=== PATIENT | female | born 1965 | race Caucasian/White ===

== ENCOUNTER 2020-02-01 11:09 | Observation (INO) ==
[2020-02-01] MEDS ORDERED: KETOROLAC TROMETHAMINE 15 MG/ML VIAL IV STA (11:27)
[2020-02-01] MEDS ORDERED: SODIUM CHLORIDE 0.9% 1000ML 2,000 ML IV ONE (11:27)
[2020-02-01] MEDS ORDERED: DiphenhydrAMINE HCL 50 MG/ML VIAL IV STA (11:27)
[2020-02-01] MEDS ORDERED: ONDANSETRON INJ 2 MG/ML 2 ML VIAL IV STA (11:27)
--- NOTE | 2020-02-01 11:31 | Emergency Department Note ---
Impression & Plan Epigastric abdominal pain, Vomiting, Acute dehydration, Gastric mass ED Provider Note NAME: FAMILIA KAPLAN AGE: 54 SEX: F : 1965 ARRIVES VIA: Walk-In INFORMANT: [Patient] ED PROVIDER(S): [Da Benites MD] CHIEF COMPLAINT: Vomiting HISTORY OF PRESENT ILLNESS: The patient is a 54-year-old female presents with 3 days of vomiting. She has a crampy abdominal pain that she would rate as a 6/10. The pain is diffuse. The patient states that she started taking clindamycin for a nasal infection. The third day after starting this medication, she started vomiting. She has not taken any of that medication since. There is no diarrhea, no urinary complaints. No fever, chills, cough or congestion. No sick contacts. The patient states that no one else in the house or any of her friends are sick with similar symptoms. No bad food consumed. Of note, the patient was here in October for very similar symptoms and did well with IV fluids REVIEW OF SYSTEMS: See HPI for pertinent positives and negatives. A total of ten systems were reviewed and were otherwise negative. PMHx/PSHx: See Below SOCIAL HISTORY: See Below. PHYSICAL EXAM: GENERAL: Patient is in no acute distress. HEENT: No acute trauma, normocephalic atraumatic, mucous membranes moist, no nasal congestion, no scleral icterus. NECK: No stridor, no adenopathy, no meningismus, trachea is midline. LUNGS: Clear to auscultation bilaterally, no wheeze, no rhonchi, breath sounds equal. HEART: Without murmurs gallops or rubs, regular rate and rhythm. ABDOMEN: Soft, moderately tender in the epigastrium and right upper quadrant, bowel sounds positive, no hernias, no peritonitis. EXTREMITIES: No cyanosis or edema, full range of motion of all the joints without pain or difficulty, no signs for acute trauma. NEUROLOGIC: Oriented x 3, no acute motor or sensory deficits, no focal weakness. SKIN: No rash, no jaundice, no diaphoresis. DIFFERENTIAL DIAGNOSIS: Appendicitis, ovarian cyst, ovarian torsion, infections, diverticulitis, UTI, obstruction, foodborne or viral illness, mesenteric ischemia, aortic pathology, inflammatory bowel disease, renal colic, PUD, pancreatitis, biliary pathology, hernia, volvulus, constipation, as well as other pathologies. EMERGENCY DEPARTMENT COURSE/PROCEDURES: ECG: Indication was epigastric pain. The ECG shows a normal sinus rhythm with some sinus arrhythmia. The rate is 83. There is an incomplete right bundle branch block. No ST elevation, no PVCs. The QTc is 465. Continuous Cardiac Monitoring: An order was placed for continuous cardiac monitoring. The monitor shows a rate 81 with normal sinus rhythm. MEDICAL DECISION MAKING: There is no leukocytosis. No anemia, in fact, the patient's hemoglobin was somewhat elevated, likely consistent with dehydration. There was a normal platelet count. No significant electrolyte abnormality or kidney failure. There was an elevation to the bilirubin, this has been documented before as per her previous testing. This elevation may be from dehydration/vomiting. The remaining liver enzymes were unremarkable. No evidence for pancreatitis. Urinalysis showed evidence for some dehydration and hematuria, no infection noted. Abdominal series did not show free air, bowel obstruction or pneumonia. Gallbladder ultrasound was unremarkable. Abdominal and pelvis CT shows a potential gastric mass versus large gastric ulceration, a GI consult was suggested. On my exam, the patient was not febrile or toxic. She was tender in the epigastrium with palpation. The patient received IV Benadryl, IV Toradol, IV Zofran and 2 L of IV saline. She was persistently nauseated and was given IV Phenergan. She received IV Pepcid and IV Protonix for the findings noted on CT. She was given IV morphine for additional pain control. She received an additional 500 cc saline bolus. The patient appears to have symptoms today from the findings on CT. She either has a gastric mass or some sort of gastric ulceration. This explains the abdominal discomfort on exam, it is certainly possible that her clindamycin flared up the underlying process and led to her presentation today. She has on going symptoms despite numerous medications administered. I do think a hospital stay is warranted. She needs a GI consult and likely an endoscopy. I spoke to the patient about her findings, I spoke with case management. I did speak with GI-the patient will likely be scoped tomorrow. The on-call hospitalist was consulted. Past Med/Surg History Medical History Arthritis Asthma Coronary artery disease Hypothyroidism PTSD (post-traumatic stress disorder) Surgical History History of delivery History of foot surgery History of sinus surgery Family History Father Cancer Allergies Grandfather (Maternal) Cancer Grandfather (Paternal) Cancer Other Coronary heart disease Heart disease Myocardial infarction No family history of adverse response to anesthesia No family history of bleeding disorder Social History Smoking Status: Never smoker Hx Alcohol Use: Yes Hx Substance Use: No (Pt does use medical marijuana) Preferred Language: Amharic marital status: Legally Current Living Situation: Alone current occupational status: employed Feels Safe at Home: Yes Allergies Allergies Allergy/AdvReac Type Severity Reaction Status Date / Time codeine Allergy Unknown Rash Verified 02/01/20 12:55 iodine Allergy Unknown Unknown Unverified 02/01/20 12:55 Penicillins Allergy Unknown Rash Unverified 02/01/20 12:55 Sulfa (Sulfonamide Allergy Unknown Rash Unverified 02/01/20 12:55 Antibiotics) sulfamethoxazole Allergy Unknown Rash Unverified 02/01/20 12:55 [From Bactrim] trimethoprim [From Bactrim] Allergy Unknown Rash Unverified 02/01/20 12:55 animal dander Allergy Verified 02/01/20 12:55 Fish Containing Products AdvReac Severe Anaphylaxis Unverified 02/01/20 12:55 moxifloxacin [From Avelox] AdvReac Severe Tachycardia Unverified 02/01/20 12:55 Home Meds Home Medications Medication Instructions Recorded Confirmed fluticasone propionate [Flovent 2 puff INHALATION DAILY 10/09/19 02/01/20 HFA] meloxicam 15 mg PO QPM 10/09/19 02/01/20 montelukast [Singulair] 10 mg PO QPM 10/09/19 02/01/20 levothyroxine [Synthroid] 75 mcg PO QAM 02/01/20 02/01/20 mometasone [Asmanex Twisthaler] 1 inh INHALATION DAILY 02/01/20 02/01/20 Previous Rx's Medication Instructions Recorded mupirocin 2 % topical ointment 1 applic TOP BID #15 gm 11/18/19 Results & Data (ED) Vital Signs Vital Signs - 24 hr 02/01/20 11:12 02/01/20 11:42 02/01/20 11:45 Temperature 37.3 C Temperature Source Oral Pulse Rate 120 H 78 Pulse Rate [Finger] 86 Pulse Rate from SpO2 Sensor Respiratory Rate 16 14 20 Respiratory Effort / Characteristics Non-Labored Respiratory Depth Normal Blood Pressure 141/84 H 176/84 H Blood Pressure [Right Arm] 176/84 H Blood Pressure Mean 103 105 Blood Pressure Mean [Right Arm] 114 Pulse Oximetry 96 97 Oxygen Delivery Method Room Air Room Air Sepsis Recent Fever Within 48 Hours No Sepsis New/Unexplained Change in Mental Status No Sepsis Action Taken by Nursing No Action Required 02/01/20 11:49 02/01/20 12:51 02/01/20 12:52 Temperature Temperature Source Pulse Rate 80 Pulse Rate [Finger] 83 Pulse Rate from SpO2 Sensor 81 88 Respiratory Rate 14 20 Respiratory Effort / Characteristics Respiratory Depth Blood Pressure 131/72 Blood Pressure [Right Arm] 131/72 Blood Pressure Mean 111 Blood Pressure Mean [Right Arm] 91 Pulse Oximetry 98 97 Oxygen Delivery Method Room Air Sepsis Recent Fever Within 48 Hours Sepsis New/Unexplained Change in Mental Status Sepsis Action Taken by Nursing 02/01/20 13:00 02/01/20 13:30 02/01/20 14:48 Temperature Temperature Source Pulse Rate Pulse Rate [Finger] Pulse Rate from SpO2 Sensor 82 81 Respiratory Rate Respiratory Effort / Characteristics Respiratory Depth Blood Pressure 156/81 H Blood Pressure [Right Arm] Blood Pressure Mean 98 Blood Pressure Mean [Right Arm] Pulse Oximetry 97 96 Oxygen Delivery Method Sepsis Recent Fever Within 48 Hours Sepsis New/Unexplained Change in Mental Status Sepsis Action Taken by Nursing 02/01/20 14:51 02/01/20 15:07 02/01/20 15:30 Temperature Temperature Source Pulse Rate Pulse Rate [Finger] 82 Pulse Rate from SpO2 Sensor Respiratory Rate 20 Respiratory Effort / Characteristics Respiratory Depth Blood Pressure 145/76 H 134/60 Blood Pressure [Right Arm] 156/81 H Blood Pressure Mean 95 85 Blood Pressure Mean [Right Arm] 106 Pulse Oximetry 98 Oxygen Delivery Method Room Air Sepsis Recent Fever Within 48 Hours Sepsis New/Unexplained Change in Mental Status Sepsis Action Taken by Nursing 02/01/20 15:41 02/01/20 15:42 02/01/20 16:00 Temperature Temperature Source Pulse Rate Pulse Rate [Finger] Pulse Rate from SpO2 Sensor 75 81 74 Respiratory Rate Respiratory Effort / Characteristics Respiratory Depth Blood Pressure 139/81 148/81 H Blood Pressure [Right Arm] Blood Pressure Mean 105 117 Blood Pressure Mean [Right Arm] Pulse Oximetry 96 98 96 Oxygen Delivery Method Sepsis Recent Fever Within 48 Hours Sepsis New/Unexplained Change in Mental Status Sepsis Action Taken by Nursing 02/01/20 16:01 Temperature Temperature Source Pulse Rate Pulse Rate [Finger] Pulse Rate from SpO2 Sensor 72 Respiratory Rate Respiratory Effort / Characteristics Respiratory Depth Blood Pressure Blood Pressure [Right Arm] Blood Pressure Mean Blood Pressure Mean [Right Arm] Pulse Oximetry 99 Oxygen Delivery Method Sepsis Recent Fever Within 48 Hours Sepsis New/Unexplained Change in Mental Status Sepsis Action Taken by [facility] Medications Current Medication List: was personally reviewed by me Laboratory Data Attestation: I reviewed the patient's lab results. Result diagrams: 02/01/20 11:28 02/01/20 11:28 Lab Results 02/01/20 02/01/20 02/01/20 Range/Units 11:28 11:28 13:40 WBC 10.71 (4.8-10.8) K/uL RBC 5.86 H (4.2-5.4) M/uL Hgb 17.0 H (12.0-16.0) g/dL Hct 50.4 H (37-47) % MCV 86.0 (80-100) fL MCH 29.0 (25-34) pg MCHC 33.7 (32-36) g/dL RDW Std Deviation 43.2 (36.4-46.3) fL RDW Coeff of Jeremy 13.8 (11.5-14.5) % Plt Count 306 (130-400) K/uL MPV 10.4 (7.4-10.4) fL Immature Gran % (Auto) 0.2 % Neut % (Auto) 75.9 % Lymph % (Auto) 16.2 % [place] % (Auto) 7.6 % Eos % (Auto) 0.0 % Baso % (Auto) 0.1 % Neut # (Auto) 8.13 H (1.4-6.5) K/uL Lymph # (Auto) 1.74 (1.2-3.4) K/uL [place] # (Auto) 0.81 H (0.11-0.59) K/uL Eos # (Auto) 0.00 (0-0.5) K/uL Baso # (Auto) 0.01 (0-0.2) K/uL Immature Gran # (Auto) 0.02 (0.00-0.02) K/uL Sodium 136 (136-145) mmol/L Potassium 3.6 (3.5-5.1) mmol/L Chloride 101 (98-107) mmol/L Carbon Dioxide 25 (21-32) mmol/L Anion Gap 11.0 (3-11) BUN 27 H (7-18) mg/dl Creatinine 0.84 (0.6-1.2) mg/dl Est Cr Clr Drug Dosing 66.4 ml/min Est GFR ( Amer) 90.7 Est GFR (Non-Af Amer) 78.2 BUN/Creatinine Ratio 31.9 H (10-20) Glucose 82 (70-99) mg/dl Calcium 10.3 H (8.5-10.1) mg/dl Total Bilirubin 1.9 H (0.2-1) mg/dl AST 13 L (15-37) U/L ALT 22 (12-78) U/L Alkaline Phosphatase 71 (45-117) U/L Total Protein 8.6 H (6.4-8.2) gm/dl Albumin 4.4 (3.4-5.0) gm/dl Globulin 4.2 H (2.5-4.0) gm/dl Albumin/Globulin Ratio 1.0 (0.9-2) Lipase 142 (73-393) U/L Urine Color Yellow Urine Appearance Clear (Clear) Urine pH 5.5 (4.5-7.5) Ur Specific [place] >= 1.030 (1.000-1.030) Urine Protein Negative (Negative) Urine Glucose (UA) Negative (Negative) Urine Ketones 2+ H (Negative) Urine Blood 1+ H (Negative) Urine Nitrite Negative (Negative) Urine Bilirubin Negative (Negative) Urine Urobilinogen Negative (Negative) Ur Leukocyte Esterase Negative (Negative) Urine RBC >30 H (0-4) /hpf Urine WBC 5-10 H (0-5) /hpf Ur Epithelial Cells >30 H (0-5) /lpf Urine Bacteria Negative (Negative) Administered Medications Discontinued Medications Diphenhydramine HCl (Diphenhydramine Hcl 50 Mg/Ml Vial) 12.5 mg IV NOW STA Stop: 02/01/20 11:28 Last Admin: 02/01/20 11:38 Dose: 12.5 mg Documented by: [id number] Famotidine (Famotidine 20mg/5ml Iv Push) 20 mg IV ONE STA Stop: 02/01/20 14:52 Last Admin: 02/01/20 15:02 Dose: 20 mg Documented by: [id number] Sodium Chloride (Nss 1000ml) 2,000 mls @ 999 mls/hr IV .Q2H1M ONE Stop: 02/01/20 13:27 Last Infusion: 02/01/20 13:37 Dose: 0 mls/hr Documented by: [id number] Admin: 02/01/20 11:36 Dose: 999 mls/hr Documented by: [id number] Promethazine HCl (Phenergan) 6.25 mg in 50.25 mls @ 201 mls/hr IV NOW STA Stop: 02/01/20 15:05 Last Infusion: 02/01/20 15:47 Dose: 0 mls/hr Documented by: [id number] Admin: 02/01/20 15:02 Dose: 201 mls/hr Documented by: [id number] Sodium Chloride (Nss 1000ml) 500 mls @ 999 mls/hr IV .Q31M ONE Stop: 02/01/20 15:21 Last Infusion: 02/01/20 15:47 Dose: 0 mls/hr Documented by: [id number] Admin: 02/01/20 15:02 Dose: 999 mls/hr Documented by: [id number] Ketorolac Tromethamine (Ketorolac Tromethamine 15 Mg/Ml Vial) 15 mg IV NOW STA Stop: 02/01/20 11:28 Last Admin: 02/01/20 11:38 Dose: 15 mg Documented by: [id number] Morphine Sulfate (Morphine Sulfate 2 Mg/Ml Carp) 2 mg IV NOW STA Stop: 02/01/20 14:52 Last Admin: 02/01/20 15:02 Dose: 2 mg Documented by: [id number] Ondansetron HCl (Ondansetron Inj 2 Mg/Ml 2 Ml Vial) 4 mg IV NOW STA Stop: 02/01/20 11:28 Last Admin: 02/01/20 11:38 Dose: 4 mg Documented by: [id number] Imaging Data Radiologist's Impression: US gallbladder CLINICAL HISTORY: Epigastric pain, vomiting COMPARISON STUDY: 10/21/2019 FINDINGS: Pancreas appears sonographically normal. The liver appears sonographically normal. The gallbladder appears sonographically normal. There is no ductal dilatation. The common bile duct measures 4 mm. There is no right- sided hydronephrosis. There is a 5 mm echogenic focus within the lower pole of the right kidney. This is consistent with although not specific for an angiomyolipoma. IMPRESSION: 1. Ultrasonographically normal gallbladder liver and pancreas. No ductal dilatation 2. No right-sided hydronephrosis 3. Nonspecific 5 mm echogenic focus within the lower pole the right kidney. XR abdomen 2V w PA chest CLINICAL HISTORY: Nausea and vomiting COMPARISON STUDY: 10/21/2019 FINDINGS: Erect chest reveals no free air. There is no focal pulmonary consolidation. Bilateral nipple shadows are visualized. Apical opacities are likely either extremities the patient will represent pleural plaques. Erect and supine views the abdomen reveal no abnormally dilated loops of large or small bowel. There are no transition zone to indicate bowel obstruction. There are no calcifications suspicious for renal calculi. This is stable tiny right pelvic basin calcification likely representing a phlebolith IMPRESSION: No evidence of bowel obstruction. No evidence of free air. CT SCAN OF THE ABDOMEN AND PELVIS WITHOUT CONTRAST CLINICAL HISTORY: vomiting, hematuria COMPARISON STUDY: X-ray study dated 02/01/2020 TECHNIQUE: CT scan of the abdomen and pelvis was performed from the lung bases to the proximal femurs. Images are reviewed in the axial, sagittal, and coronal planes. IV contrast was not administered for this examination. A dose lowering technique was utilized adhering to the principles of ALARA. CT DOSE: 239.37 mGy.cm FINDINGS: Lower chest: The heart is normal in size and configuration, without pericardial effusion. The lung bases and pleural spaces are clear. Liver: The unenhanced liver is normal in size, contour, and attenuation. There is no intrahepatic biliary ductal dilatation. Gallbladder: Mildly distended. No calculi identified Spleen: Normal in size and attenuation. Pancreas: Unremarkable. Adrenal glands: Unremarkable. Kidneys: No renal, ureteral, or bladder calculi are visualized Bowel: There are no transition zones indicate bowel obstruction. There is colonic diverticulosis. There is no evidence of acute diverticulitis. The appendix appears normal. The stomach appears abnormal with an apparent mass involving the distal gastric body/antrum. Mass ulceration cannot be excluded. There are mildly prominent perigastric lymph nodes. GI consultation for direct visualization is recommended in follow-up. Peritoneum: There is no intraperitoneal free air or abdominal ascites. Vasculature: The abdominal aorta is normal in course and caliber. Adenopathy: There are borderline enlarged perigastric lymph nodes Pelvic viscera: The bladder, and pelvic viscera are unremarkable. Skeletal structures: No destructive osseous lesions are seen. IMPRESSION: 1. No evidence of bowel obstruction. No evidence of free air 2. Normal appendix. No evidence of acute diverticulitis 3. Suspected gastric mass (neoplasm versus edema mound from peptic ulcer disease) involving the distal gastric body/antrum with possible ulceration. There are mildly prominent perigastric lymph nodes. GI consultation is recommended for consideration of endoscopic correlation. Blood Pressure Blood Pressure Findings: Elevated blood pressure Blood Pressure Disposition: Referred to patients primary care provider Discharge Plan Visit Data Chief Complaint: Vomiting Stated Complaint: NAUSEA, VOMITING ED Provider: Da Benites Discharge Problem: Epigastric abdominal pain, Vomiting, Acute dehydration, Gastric mass Patient Disposition: Admitted As Inpatient Condition: Fair Forms Stand Alone Forms: Cloudyn Prescriptions Prescriptions: No Action mupirocin 2 % ointment 1 applic TOP BID Qty: 15 RF: 2 meloxicam 15 mg Tablet 15 mg PO QPM RF: 0 Flovent HFA 44 mcg/actuation Hfa Aerosol Inhaler 2 puff INHALATION DAILY RF: 0 montelukast [Singulair] 10 mg Tablet 10 mg PO QPM RF: 0 levothyroxine [Synthroid] 75 mcg Tablet 75 mcg PO QAM RF: 0 Asmanex Twisthaler 220 mcg/ actuation (30) aerosol powdr breath activated 1 inh INHALATION DAILY RF: 0 Referrals Referrals: PCP,NO [Primary Care Provider] - Discharge Problem: Vomiting Qualifiers: Vomiting type: unspecified Vomiting Intractability: non-intractable Nausea presence: with nausea Qualified Code(s): R11.2 - Nausea with vomiting, unspecified
[2020-02-01 11:43] LABS: Basophils # (auto) 0.01 K/uL (0-0.2); Basophils % (auto) 0.1 %; Hematocrit (blood only) 50.4 % (37-47); Immature Granulocytes # (auto) 0.02 K/uL (0.00-0.02); Immature Granulocytes % (auto) 0.2 %; Lymphocytes # (auto) 1.74 K/uL (1.2-3.4); Lymphocytes % (auto) 16.2 %; Mean Corpuscular Hgb Conc 33.7 g/dL (32-36); Mean Platelet Volume 10.4 fL (7.4-10.4); Monocytes # (auto) 0.81 K/uL (0.11-0.59); Monocytes % (auto) 7.6 %; Neutrophils # (auto) 8.13 K/uL (1.4-6.5); Neutrophils % (auto) 75.9 %; Platelet Count 306 K/uL (130-400); RDW Coefficient of Variation 13.8 % (11.5-14.5); RDW Standard Deviation 43.2 fL (36.4-46.3); Red Blood Count 5.86 M/uL (4.2-5.4); White Blood Count 10.71 K/uL (4.8-10.8)
[2020-02-01 11:59] LABS: Albumin Level 4.4 gm/dl (3.4-5.0); BUN Creatinine Ratio 31.9 (10-20); Calcium 10.3 mg/dl (8.5-10.1); Creatinine Clr Calc Pharmacy 66.4 ml/min; Est GFR (African American) 90.7; Est GFR (Non-African American) 78.2; Potassium 3.6 mmol/L (3.5-5.1)
[2020-02-01 12:02] LABS: Bilirubin,Total 1.9 mg/dl (0.2-1); Globulin 4.2 gm/dl (2.5-4.0); Total Protein 8.6 gm/dl (6.4-8.2)
--- NOTE | 2020-02-01 12:24 | Ultrasound Report ---
US gallbladder CLINICAL HISTORY: Epigastric pain, vomiting COMPARISON STUDY: 10/21/2019 FINDINGS: Pancreas appears sonographically normal. The liver appears sonographically normal. The gall bladder appears sonographically normal. There is no ductal dilatation. The common bile duct measures 4 mm. There is no right-sided hydronephrosis. There is a 5 mm echogenic focus within the lower pole o f the right kidney. This is consistent with although not specific for an angiomyolipoma. IMPRESSION: 1. Ultrasonographically normal gallbladder liver and pancreas. No ductal dilatation 2. No right-sided hydronephrosis 3. Nonspecific 5 mm echogenic focus within the lower pole the right kidney. ACT 112: Negative or not required by law. Electronically signed by: Tony Liang M.D. 02/01/2020 12:23 PM
--- NOTE | 2020-02-01 12:50 | XRay Report ---
XR abdomen 2V w PA chest CLINICAL HISTORY: Nausea and vomiting COMPARISON STUDY: 10/21/2019 FINDINGS: Erect chest reveals no free air. There is no focal pulmonary consolidation. Bilateral nippl e shadows are visualized. Apical opacities are likely either extremities the patient will represent p leural plaques. Erect and supine views the abdomen reveal no abnormally dilated loops of large or sma ll bowel. There are no transition zone to indicate bowel obstruction. There are no calcifications jordon picious for renal calculi. This is stable tiny right pelvic basin calcification likely representing a phlebolith IMPRESSION: No evidence of bowel obstruction. No evidence of free air. ACT 112: Negative or not required by law. Electronically signed by: Tony Liang M.D. 02/01/2020 12:49 PM
[2020-02-01 14:08] LABS: Appearance Urine Clear (Clear); Blood Urine 1+ (Negative); Color Urine Yellow; Glucose Urine UA Negative (Negative); Ketones Urine 2+ (Negative); Leukocyte Esterase Urine Negative (Negative); Nitrite Urine Negative (Negative); Protein Urine Negative (Negative); Specific Gravity Urine >= 1.030 (1.000-1.030); Urobilinogen Urine Negative (Negative); pH Urine 5.5 (4.5-7.5)
[2020-02-01 14:15] LABS: Bilirubin Urine Negative (Negative); Ictotest Urine Negative (Negative)
[2020-02-01 14:50] LABS: Epithelial Cell Urine >30 /lpf (0-5); RBC Urine >30 /hpf (0-4)
[2020-02-01] MEDS ORDERED: FAMOTIDINE 20MG/5ML IV PUSH IV STA (14:51)
[2020-02-01] MEDS ORDERED: SODIUM CHLORIDE 0.9% 1000ML 500 ML IV ONE (14:51)
[2020-02-01] MEDS ORDERED: PROMETHAZINE 6.25 MG/50.25 ML BAG IV STA (14:51)
[2020-02-01] MEDS ORDERED: MoRPHine SULFATE 2 MG/ML CARP IV STA (14:51)
[2020-02-01 14:54] LABS: Bacteria Urine Negative (Negative)
--- NOTE | 2020-02-01 16:00 | CT Scan Report ---
CT SCAN OF THE ABDOMEN AND PELVIS WITHOUT CONTRAST CLINICAL HISTORY: vomiting, hematuria COMPARISON STUDY: X-ray study dated 02/01/2020 TECHNIQUE: CT scan of the abdomen and pelvis was performed from the lung bases to the proximal femurs . Images are reviewed in the axial, sagittal, and coronal planes. IV contrast was not administered fo r this examination. A dose lowering technique was utilized adhering to the principles of ALARA. CT DOSE: 239.37 mGy.cm FINDINGS: Lower chest: The heart is normal in size and configuration, without pericardial effusion. The lung ba ses and pleural spaces are clear. Liver: The unenhanced liver is normal in size, contour, and attenuation. There is no intrahepatic raymond iary ductal dilatation. Gallbladder: Mildly distended. No calculi identified Spleen: Normal in size and attenuation. Pancreas: Unremarkable. Adrenal glands: Unremarkable. Kidneys: No renal, ureteral, or bladder calculi are visualized Bowel: There are no transition zones indicate bowel obstruction. There is colonic diverticulosis. The re is no evidence of acute diverticulitis. The appendix appears normal. The stomach appears abnormal with an apparent mass involving the distal gastric body/antrum. Mass ulceration cannot be excluded. T here are mildly prominent perigastric lymph nodes. GI consultation for direct visualization is recomm ended in follow-up. Peritoneum: There is no intraperitoneal free air or abdominal ascites. Vasculature: The abdominal aorta is normal in course and caliber. Adenopathy: There are borderline enlarged perigastric lymph nodes Pelvic viscera: The bladder, and pelvic viscera are unremarkable. Skeletal structures: No destructive osseous lesions are seen. IMPRESSION: 1. No evidence of bowel obstruction. No evidence of free air 2. Normal appendix. No evidence of acute diverticulitis 3. Suspected gastric mass (neoplasm versus edema mound from peptic ulcer disease) involving the dist al gastric body/antrum with possible ulceration. There are mildly prominent perigastric lymph nodes. GI consultation is recommended for consideration of endoscopic correlation. ACT 112: Negative or not required by law. Electronically signed by: Tony Liang M.D. 02/01/2020 3:59 PM
[2020-02-01] MEDS ORDERED: PANTOprazole 80 MG in DEXTROSE 5% 100 ML IV ONE (16:05)
--- NOTE | 2020-02-01 16:32 | History & Physical Report ---
Date of Service February 01, 2020 Assessment & Plan (1) Vomiting: Episodic. severe occurrence in October prompting ER visit. Intermittent since then, then the last 3 days has had persistent symptoms. No obstruction on imaging today, but CT shows ? gastric mass. Pt does have h/o remote PUD and perhaps CT is showing signs of PUD. Either way ER spoke with Betty RUDOLPH who is planning EGD tomorrow for definitive diagnosis. Allow clear liquid diet until Midnight tonight. Then NPO for EGD tomorrow. PPI IV. Carafate qid. Pain meds prn. Anti-emetics prn. Because of nocturnal vomiting and brief headache that sometimes occurs after emesis will obtain head CT to r/o intracranial mass. (2) Epigastric abdominal pain: abnormal stomach on CT today. EGD tomorrow - consult placed to Dr Jeter from [facility]. (3) Abnormal CT of the abdomen: concerning findings related to the stomach seen today on CT. there are also enlarged lymph nodes adjacent to the stomach. gastric cancer to be ruled out with EGD tomorrow. (4) History of peptic ulcer: ~10 years ago, dx in [place]. Hold NSAIDs from home. (5) Allergic rhinitis: cont singulair (6) Hypothyroidism: TSH earlier this year was mildly high. repeat today is normal. cont synthroid. (7) Asthma: no exacerbation at this time. cont usual inhalers, singulair, etc (8) PTSD (post-traumatic stress disorder): (9) Polycythemia: likely due to severe dehydration / hemoconcentration. BUN also markedly elevated. Hydrate, repeat labs in am. (10) Impetigo, unspecified: sounds as if patient has impetigo of the left nostril. cont bactroban BID. hold on oral antibiotics. (11) DVT prophylaxis: SCDs hold on chemical means due to need for EGD tomorrow place on observation status following this admission patient will need to be set up with a new PCP History of Present Illness Chief Complaint: vomiting Primary Care Provider: NO PCP 54yo female with h/o hypothyroidism, asthma, and allergic rhinitis presents with 3 days of vomiting. Vomiting is typically stomach contents or acid. Nonbilious and nonbloody. Unable to eat since Monday of this week. No fevers. No rigors/chills. She has had abdominal pain and cramping along with pressure over the RUQ. The pain has been off/on for several weeks but worse since Monday. No diarrhea. She has had nocturnal vomiting as well. Some headache (5 minutes or so) after having emesis. Sporadically over the last few months she has woken up in the am, gotten out of bed, and vomited. Has lost 5 pounds in the last 4 days. No weight loss prior to that. She does have intermittent heartburn symptoms. Had EGD about 10 years ago in [place]. That EGD was done for dysphagia. She was dx with PUD at that time. She doesn't recall if she had H. pylori. Takes occasional tums for acid. She uses meloxicam very seldomly. Last week, however, she did take meloxicam for 3-4 days. She also took advil OTC last week for 4-5 days. No etoh. No tobacco. Uses medical THC for chronic arthritis. She had a similar multi-day episode of vomiting and dehydration in October 2019 as well. Seen in ER then for that episode. Allergies Allergy/AdvReac Type Severity Reaction Status Date / Time codeine Allergy Unknown Rash Verified 02/01/20 12:55 iodine Allergy Unknown Unknown Unverified 02/01/20 12:55 Penicillins Allergy Unknown Rash Unverified 02/01/20 12:55 Sulfa (Sulfonamide Allergy Unknown Rash Unverified 02/01/20 12:55 Antibiotics) sulfamethoxazole Allergy Unknown Rash Unverified 02/01/20 12:55 [From Bactrim] trimethoprim [From Bactrim] Allergy Unknown Rash Unverified 02/01/20 12:55 animal dander Allergy Verified 02/01/20 12:55 Fish Containing Products AdvReac Severe Anaphylaxis Unverified 02/01/20 12:55 moxifloxacin [From Avelox] AdvReac Severe Tachycardia Unverified 02/01/20 12:55 Home Medications Home Medications Medication Instructions Recorded Confirmed Type fluticasone propionate [Flovent 2 puff INHALATION DAILY 10/09/19 02/01/20 Hist ory HFA] meloxicam 15 mg PO QPM 10/09/19 02/01/20 History montelukast [Singulair] 10 mg PO QPM 10/09/19 02/01/20 History mupirocin 2 % topical ointment 1 applic TOP BID #15 gm 11/18/19 02/01/20 Rx levothyroxine [Synthroid] 75 mcg PO QAM 02/01/20 02/01/20 History mometasone [Asmanex Twisthaler] 1 inh INHALATION DAILY 02/01/20 02/01/20 History Past Med/Surg History Medical History Allergic rhinitis Arthritis Asthma Coronary artery disease by way of coronary calcium scoring on CT NOT cardiac cath History of peptic ulcer Hypothyroidism PTSD (post-traumatic stress disorder) Surgical History (Updated 02/01/20 @ 17:08 by James Silverman) History of delivery x 2 History of foot surgery right foot History of sinus surgery Family History Father Cancer prostate Allergies Grandfather (Maternal) Cancer Coronary heart disease Grandfather (Paternal) Cancer Grandmother (Maternal) Myocardial infarction Family/Other Myocardial infarction cousin Other Heart disease No family history of adverse response to anesthesia No family history of bleeding disorder Social History (Updated 02/01/20 @ 17:12 by James Silverman) Smoking Status: Never smoker Hx Alcohol Use: Yes Alcohol type: beer and wine Alcohol Intake Frequency: M onthly or Less Alcohol Intake Frequency Comment: rare Hx Substance Use: Yes Last Used Substance: Days (ago) Last Used Substance Other:: Medical Marijuana Preferred Language: Tunisian Communication Ability: Effective 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 Beliefs That Will Affect Care: None marital status: Legally Current Living Situation: Family Current Living Situation Comment: was living in [place], [place] and moved to [place] in 2019 current occupational status: employed 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 How many Children do You have: 3 How many Children do You have Comment: 2 biological children and 1 adopted child Feels Safe at Home: Yes Safety Concerns: Feels Safe At This Time Review of Systems Constitutional: + fatigue, + anorexia and + weight loss; no fever, no chills and no body aches Eyes: + worsening vision vision has worsened over several years Ear, Nose, Mouth, Throat: + nasal discharge (left nare; treated with bactroban) was placed on clindamycin by ENT several days ago for nasal infection, left nostril; no acute loss of taste or smell Respiratory: no cough and no dyspnea Cardiovascular: no chest pain and no edema Gastrointestinal: + abdominal pain, + nausea and + vomiting; no diarrhea/loose stools, no blood in stools and no melena Genitourinary: no dysuria Musculoskeletal: + joint pain (chronic) Integumentary: no rash Neurologic: no loss of sensation and no headache(s) Psychiatric: no depression Endocrine: no diabetes Hematologic / Lymphatic: + easy bruising (chronic ) Physical Exam Constitutional: + thin; no acute distress and no altered mental status Eyes: PERRL ENMT: Mouth: + tongue abnormality (geographic tongue) and + dry oral mucous membranes Neck: trachea midline, no thyromegaly Respiratory: normal respiratory effort, lungs clear to auscultation Cardiovascular: Rate/Rhythm: regular rate and regular rhythm Heart Sounds: normal S1, normal S2 and + murmur (1/6 AYAAN LLSB) Vessels: posterior tibial pulses present and dorsalis pedis pulses present; no JVD Extremities: no edema Gastrointestinal (Abdomen): normal bowel sounds, soft, nontender, no hepatosplenomegaly Percussion/Palpation: + abdominal mass (?fullness high epigastric region?) Musculoskeletal: no cyanosis or clubbing, extremities motor strength 5/5 Skin: no rashes, warm and dry Neurologic: deep tendon reflexes 2+ bilaterally and moves all extremities; no focal motor deficits Psychiatric: Orientation: alert and oriented x 3 Affect: + tearful affect Lymphatic: no cervical lymphadenopathy Results & Data Results & Data ([facility]) Vital Signs (Past 12 Hours) Vital Signs Temp Pulse Pulse Resp BP BP Pulse Ox 02/01/20 16:01 99 02/01/20 16:00 148/81 H 96 02/01/20 15:42 98 02/01/20 15:41 139/81 96 02/01/20 15:30 134/60 02/01/20 15:07 145/76 H 02/01/20 14:51 82 20 156/81 H 98 02/01/20 14:48 156/81 H 02/01/20 13:30 96 02/01/20 13:00 97 02/01/20 12:52 83 20 131/72 97 02/01/20 12:51 131/72 98 02/01/20 11:49 80 14 02/01/20 11:45 86 20 176/84 H 97 02/01/20 11:42 78 14 176/84 H 02/01/20 11:12 37.3 C 120 H 16 141/84 H 96 Laboratory Results Laboratory Results - last 24 hr 02/01/20 02/01/20 02/01/20 11:28 11:28 13:40 WBC 10.71 RBC 5.86 H Hgb 17.0 H Hct 50.4 H MCV 86.0 MCH 29.0 MCHC 33.7 RDW Std Deviation 43.2 RDW Coeff of Jeremy 13.8 Plt Count 306 MPV 10.4 Immature Gran % (Auto) 0.2 Neut % (Auto) 75.9 Lymph % (Auto) 16.2 Dunn % (Auto) 7.6 Eos % (Auto) 0.0 Baso % (Auto) 0.1 Neut # (Auto) 8.13 H Lymph # (Auto) 1.74 Dunn # (Auto) 0.81 H Eos # (Auto) 0.00 Baso # (Auto) 0.01 Immature Gran # (Auto) 0.02 Sodium 136 Potassium 3.6 Chloride 101 Carbon Dioxide 25 Anion Gap 11.0 BUN 27 H Creatinine 0.84 Est Cr Clr Drug Dosing 66.4 Est GFR ( Amer) 90.7 Est GFR (Non-Af Amer) 78.2 BUN/Creatinine Ratio 31.9 H Glucose 82 Calcium 10.3 H Total Bilirubin 1.9 H AST 13 L ALT 22 Alkaline Phosphatase 71 Total Protein 8.6 H Albumin 4.4 Globulin 4.2 H Albumin/Globulin Ratio 1.0 Lipase 142 Urine Color Yellow Urine Appearance Clear Urine pH 5.5 Ur Specific [place] >= 1.030 Urine Protein Negative Urine Glucose (UA) Negative Urine Ketones 2+ H Urine Blood 1+ H Urine Nitrite Negative Urine Bilirubin Negative Urine Urobilinogen Negative Ur Leukocyte Esterase Negative Urine RBC >30 H Urine WBC 5-10 H Ur Epithelial Cells >30 H Urine Bacteria Negative Diagnostic Findings 1. CT abd/pelvis - IMPRESSION: 1. No evidence of bowel obstruction. No evidence of free air 2. Normal appendix. No evidence of acute diverticulitis 3. Suspected gastric mass (neoplasm versus edema mound from peptic ulcer disease) involving the distal gastric body/antrum with possible ulceration. There are mildly prominent perigastric lymph nodes. GI consultation is recommended for consideration of endoscopic correlation. 2. RUQ u/s - IMPRESSION: 1. Ultrasonographically normal gallbladder liver and pancreas. No ductal dilatation 2. No right-sided hydronephrosis 3. Nonspecific 5 mm echogenic focus within the lower pole the right kidney. 3. EKG - my reading - NSR, IRBBB (RSR' in V1), no ST changes Code Status & VTE Plan Code Status full VTE Prophylaxis Plan VTE Prophylaxis will be ordered: Yes PG Care Time/CCT Total # of Minutes Spent Total Time Spent with Patient: Total time spent is greater than 50% in coordination of care (as documented) at patient's floor/unit and/or counseling patient: Coding Level of Care Code 85235 OBS Care - Level 3 Diagnoses Vomiting R11.2 Nausea presence: with nausea Vomiting Intractability: non-intractable Vomiting type: unspecified Epigastric abdominal pain R10.[address] of the abdomen R93.5 History of peptic ulcer Z87.11 Allergic rhinitis J. 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
[2020-02-01 18:23] LABS: Magnesium 2.1 mg/dl (1.8-2.4); Thyroid Stimulating Hormone 0.714 uIu/ml (0.300-4.500)
--- NOTE | 2020-02-01 19:11 | CT Scan Report ---
CT head/brain wo con CLINICAL HISTORY: emesis headaches; eval intra-cranial pathology COMPARISON STUDY: No previous studies for comparison. TECHNIQUE: Axial CT of the brain is performed from the vertex to the skull base. IV contrast was not administered for this examination. A dose lowering technique was utilized adhering to the principles of ALARA. CT DOSE: 537.48 mGy.cm FINDINGS: No intra or extra-axial mass lesions are visualized. There is no CT evidence of acute cortical infarc tion. There is no evidence of midline shift. There is no acute hemorrhage. No calvarial fractures ar e visualized. There is no evidence of pathologic ventricular dilatation. There is no evidence of acute sinusitis IMPRESSION: No acute intracranial findings ACT 112: Negative or not required by law. Electronically signed by: Tony Liang M.D. 02/01/2020 7:10 PM
[2020-02-01] MEDS ORDERED: ONDANSETRON INJ 2 MG/ML 2 ML VIAL IV PRN (19:42)
[2020-02-01] MEDS ORDERED: ACETAMINOPHEN 325 MG TAB PO PRN (19:42)
[2020-02-01] MEDS: MUPIROCIN 2% OINT 22 GM TUBE EXT SCH (21:54)
[2020-02-01] MEDS: SUCRALFATE 1 GM/10 ML UDC PO SCH (21:54)
[2020-02-01] MEDS: PANTOprazole 40 MG in SYRINGE 0 ML IV SCH (21:54)
[2020-02-01] MEDS: MONTELUKAST SODIUM 10 MG TABLET PO SCH (21:55)
[2020-02-01] MEDS: D5NSS + 20MEQ KCL 20 MEQ/1,000 ML BAG IV SCH (21:55)
[2020-02-02 06:36] LABS: Basophils # (auto) 0.01 K/uL (0-0.2); Basophils % (auto) 0.2 %; Eosinophils # (auto) 0.09 K/uL (0-0.5); Eosinophils % (auto) 1.7 %; Hematocrit (blood only) 43.4 % (37-47); Hemoglobin 14.2 g/dL (12.0-16.0); Lymphocytes # (auto) 1.63 K/uL (1.2-3.4); Mean Corpuscular Hemoglobin 28.5 pg (25-34); Mean Corpuscular Hgb Conc 32.7 g/dL (32-36); Mean Platelet Volume 10.2 fL (7.4-10.4); Monocytes % (auto) 7.4 %; Neutrophils # (auto) 3.31 K/uL (1.4-6.5); Neutrophils % (auto) 60.7 %; Platelet Count 215 K/uL (130-400); RDW Coefficient of Variation 13.9 % (11.5-14.5); RDW Standard Deviation 43.6 fL (36.4-46.3); Red Blood Count 4.99 M/uL (4.2-5.4); White Blood Count 5.44 K/uL (4.8-10.8)
[2020-02-02] MEDS: D5NSS + 20MEQ KCL 20 MEQ/1,000 ML BAG IV SCH ×2 (07:04→16:08)
[2020-02-02] MEDS: MUPIROCIN 2% OINT 22 GM TUBE EXT SCH ×2 (07:05→19:55)
[2020-02-02] MEDS: SUCRALFATE 1 GM/10 ML UDC PO SCH ×4 (07:05→19:54)
[2020-02-02] MEDS: LEVOTHYROXINE SODIUM 75 MCG TABLET PO SCH ×2 (07:05→10:28)
[2020-02-02] MEDS: FLUTICASONE FUROATE 100MCG 14 PUFFS/INHALER INH SCH (07:06)
--- NOTE | 2020-02-02 07:06 | Gastrointestinal Consultation ---
Date of Consultation February 02, 2020 Assessment & Plan (1) Abnormal CT of the abdomen: EGD today to r/o Gastric outlet obstruction, Mass Vs Ulcer. (2) Epigastric abdominal pain: History of Present Illness Attending Physician: James Silverman History of Present Illness 54 years old female patient with medical comorbids of Polycythemia, Hypothyroidism, admitted with intractable nausea and vomiting for one week and intolerable to PO intake. Reports use of ABx and NSAIDs recently. No hematemesis or melena. No significant weight loss. CT scan showed large gastric mass Vs Ulcer. Had EGD 10 yrs ago for dysphagia. Allergies Allergy/AdvReac Type Severity Reaction Status Date / Time codeine Allergy Unknown Rash Verified 02/01/20 12:55 iodine Allergy Unknown Unknown Unverified 02/01/20 12:55 Penicillins Allergy Unknown Rash Unverified 02/01/20 12:55 Sulfa (Sulfonamide Allergy Unknown Rash Unverified 02/01/20 12:55 Antibiotics) sulfamethoxazole Allergy Unknown Rash Unverified 02/01/20 12:55 [From Bactrim] trimethoprim [From Bactrim] Allergy Unknown Rash Unverified 02/01/20 12:55 animal dander Allergy Verified 02/01/20 12:55 Fish Containing Products AdvReac Severe Anaphylaxis Unverified 02/01/20 12:55 moxifloxacin [From Avelox] AdvReac Severe Tachycardia Unverified 02/01/20 12:55 Home Medications Home Medications Medication Instructions Recorded Confirmed Type fluticasone propionate [Flovent 2 puff INHALATION DAILY 10/09/19 02/01/20 History HFA] meloxicam 15 mg PO QPM 10/09/19 02/01/20 History montelukast [Singulair] 10 mg PO QPM 10/09/19 02/01/20 History mupirocin 2 % topical ointment 1 applic TOP BID #15 gm 11/18/19 02/01/20 Rx levothyroxine [Synthroid] 75 mcg PO QAM 02/01/20 02/01/20 History mometasone [Asmanex Twisthaler] 1 inh INHALATION DAILY 02/01/20 02/01/20 History Patient History Medical History Allergic rhinitis Arthritis Asthma Coronary artery disease by way of coronary calcium scoring on CT NOT cardiac cath History of peptic ulcer Hypothyroidism PTSD (post-traumatic stress disorder) Surgical History (Updated 02/01/20 @ 17:08 by James Silverman) History of delivery x 2 History of foot surgery right foot History of sinus surgery Family History Father Cancer prostate Allergies Grandfather (Maternal) Cancer Coronary heart disease Grandfather (Paternal) Cancer Grandmother (Maternal) Myocardial infarction Family/Other Myocardial infarction cousin Other Heart disease No family history of adverse response to anesthesia No family history of bleeding disorder Social History (Updated 02/01/20 @ 17:12 by James Silverman) Smoking Status: Never smoker Hx Alcohol Use: Yes Alcohol type: beer and wine Alcohol Intake Frequency: Monthly or Less Alcohol Intake Frequency Comment: rare Hx Substance Use: Yes Last Used Substance: Days (ago) Last Used Substance Other:: Medical Marijuana Preferred Language: Sami Communication Ability: Effective 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 Beliefs That Will Affect Care: None marital status: Legally Current Living Situation: Family Current Living Situation Comment: was living in [place], [place] and moved to [place] in 2019 current occupational status: employed 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 do You have: 3 How many Children do You have Comment: 2 biological children and 1 adopted child Feels Safe at Home: Yes Safety Concerns: Feels Safe At This Time Review of Systems Constitutional: no fever, no chills, no fatigue and no weight loss Eyes: no eye pain and no worsening vision Ear, Nose, Mouth, Throat: no tinnitus, no dizziness, no nasal discharge and no epistaxis Respiratory: no cough, no dyspnea, no dyspnea on exertion and no wheezing Cardiovascular: no chest pain, no orthopnea, no palpitations and no edema Gastrointestinal: as per Subjective / HPI Genitourinary: no dysuria, no urinary frequency, no urinary incontinence and no hematuria Musculoskeletal: no stiffness and no myalgia Neurologic: no localized weakness, no paralysis, no tremor(s) and no headache(s) Endocrine: no polydipsia and no polyuria Hematologic / Lymphatic: no easy bleeding and no night sweats Physical Exam Constitutional: + well hydrated, cooperative and comfortable Eyes: PERRL, conjunctivae normal, anicteric sclerae ENMT: external ear and nose normal, oropharynx normal Neck: normal visual inspection and trachea midline Respiratory: normal respiratory effort, lungs clear to auscultation Auscultation: no wheezes Cardiovascular: RRR, no murmur, no edema Gastrointestinal (Abdomen): normal bowel sounds, soft, nontender, no hepatosplenomegaly Musculoskeletal: no cyanosis or clubbing, extremities motor strength 5/5 Skin: no rashes, warm and dry Neurologic: awake; no focal motor deficits Motor/Sensory: no tremor Results & Data ([facility]) Vital Signs (Past 12 Hours) Vital Signs Temp Pulse Resp BP Pulse Ox 02/02/20 03:19 36.7 C 53 L 18 120/68 98 02/01/20 23:05 37.1 C 66 17 116/64 95 02/01/20 19:40 37.2 C 62 19 123/67 96 Laboratory Results Laboratory Results - last 24 hr 02/01/20 02/01/20 02/01/20 11:28 11:28 11:28 WBC 10.71 RBC 5.86 H Hgb 17.0 H Hct 50.4 H MCV 86.0 MCH 29.0 MCHC 33.7 RDW Std Deviation 43.2 RDW Coeff of Jeremy 13.8 Plt Count 306 MPV 10.4 Immature Gran % (Auto) 0.2 Neut % (Auto) 75.9 Lymph % (Auto) 16.2 Summers % (Auto) 7.6 Eos % (Auto) 0.0 Baso % (Auto) 0.1 Neut # (Auto) 8.13 H Lymph # (Auto) 1.74 Summers # (Auto) 0.81 H Eos # (Auto) 0.00 Baso # (Auto) 0.01 Immature Gran # (Auto) 0.02 Sodium 136 Potassium 3.6 Chloride 101 Carbon Dioxide 25 Anion Gap 11.0 BUN 27 H Creatinine 0.84 Est Cr Clr Drug Dosing 66.4 Est GFR ( Amer) 90.7 Est GFR (Non-Af Amer) 78.2 BUN/Creatinine Ratio 31.9 H Glucose 82 Calcium 10.3 H Magnesium 2.1 Total Bilirubin 1.9 H AST 13 L ALT 22 Alkaline Phosphatase 71 Total Protein 8.6 H Albumin 4.4 Globulin 4.2 H Albumin/Globulin Ratio 1.0 Lipase 142 TSH 0.714 Urine Color Urine Appearance Urine pH Ur Specific [place] Urine Protein Urine Glucose (UA) Urine Ketones Urine Blood Urine Nitrite Urine Bilirubin Urine Urobilinogen Ur Leukocyte Esterase Urine RBC Urine WBC Ur Epithelial Cells Urine Bacteria 02/01/20 02/02/20 02/02/20 13:40 06:24 06:24 WBC 5.44 RBC 4.99 Hgb 14.2 Hct 43.4 MCV 87.0 MCH 28.5 MCHC 32.7 RDW Std Deviation 43.6 RDW Coeff of Jeremy 13.9 Plt Count 215 MPV 10.2 Immature Gran % (Auto) 0.0 Neut % (Auto) 60.7 Lymph % (Auto) 30.0 Summers % (Auto) 7.4 Eos % (Auto) 1.7 Baso % (Auto) 0.2 Neut # (Auto) 3.31 Lymph # (Auto) 1.63 Summers # (Auto) 0.40 Eos # (Auto) 0.09 Baso # (Auto) 0.01 Immature Gran # (Auto) 0.00 Sodium 140 Potassium 3.5 Chloride 110 H Carbon Dioxide 25 Anion Gap 5.0 BUN 14 Creatinine 0.79 Est Cr Clr Drug Dosing 70.6 Est GFR ( Amer) 97.7 Est GFR (Non-Af Amer) 84.3 BUN/Creatinine Ratio 18.1 Glucose 97 Calcium 8.4 L D Magnesium Total Bilirubin 1.8 H AST 12 L ALT 17 Alkaline Phosphatase 51 Total Protein 6.4 D Albumin 3.1 L Globulin 3.3 Albumin/Globulin Ratio 0.9 Lipase TSH Urine Color Yellow Urine Appearance Clear Urine pH 5.5 Ur Specific [place] >= 1.030 Urine Protein Negative Urine Glucose (UA) Negative Urine Ketones 2+ H Urine Blood 1+ H Urine Nitrite Negative Urine Bilirubin Negative Urine Urobilinogen Negative Ur Leukocyte Esterase Negative Urine RBC >30 H Urine WBC 5-10 H Ur Epithelial Cells >30 H Urine Bacteria Negative
[2020-02-02 07:24] LABS: Albumin Level 3.1 gm/dl (3.4-5.0); BUN Creatinine Ratio 18.1 (10-20); Calcium 8.4 mg/dl (8.5-10.1); Creatinine Clr Calc Pharmacy 70.6 ml/min; Est GFR (African American) 97.7; Est GFR (Non-African American) 84.3; Potassium 3.5 mmol/L (3.5-5.1)
[2020-02-02 07:25] LABS: Albumin Globulin Ratio 0.9 (0.9-2); Bilirubin,Total 1.8 mg/dl (0.2-1); Globulin 3.3 gm/dl (2.5-4.0); Total Protein 6.4 gm/dl (6.4-8.2)
[2020-02-02] MEDS: PANTOprazole 40 MG in SYRINGE 0 ML IV SCH ×2 (09:03→19:55)
--- NOTE | 2020-02-02 16:10 | History & Physical Bridge Note ---
Date of Service February 02, 2020 History & Physical Bridge Note I have examined the patient, reviewed the History & Physical and in the interval since the performance of the History & Physical I have noted the following changes of clinical significance: no changes noted
[2020-02-02] MEDS ORDERED: ATROPINE SULFATE 0.1 MG/ML 10ML SYR IV PRN (16:29)
[2020-02-02] MEDS ORDERED: ePHEDrine sulfate 50 MG/ML AMP IV PRN (16:29)
[2020-02-02] MEDS ORDERED: ONDANSETRON INJ 2 MG/ML 2 ML VIAL IV PRN (16:29)
[2020-02-02] MEDS ORDERED: fentaNYL citrate 100 MCG/2 ML VIAL IV PRN (16:29)
--- NOTE | 2020-02-02 16:31 | Anesthesiology Consultation ---
Date of Service February 02, 2020 Assessment & Plan (1) Encounter for pre-operative examination: Chart Review Chart Review: Acceptable Risk for Surgery and Patient NOT seen in Pre Admission Testing Consults Requested none History Surgery Operation Date: 02/02/20 13:00 Proposed Procedures p Esophagogastroduodenoscopy - Judah Jeter MD Height/Weight Height: 5 ft 5 in Weight: 55.6 kg Allergies Allergy/AdvReac Type Severity Reaction Status Date / Time codeine Allergy Unknown Rash Verified 02/01/20 12:55 iodine Allergy Unknown Unknown Unverified 02/01/20 12:55 Penicillins Allergy Unknown Rash Unverified 02/01/20 12:55 Sulfa (Sulfonamide Allergy Unknown Rash Unverified 02/01/20 12:55 Antibiotics) sulfamethoxazole Allergy Unknown Rash Unverified 02/01/20 12:55 [From Bactrim] trimethoprim [From Bactrim] Allergy Unknown Rash Unverified 02/01/20 12:55 animal dander Allergy Verified 02/01/20 12:55 Fish Containing Products AdvReac Severe Anaphylaxis Unverified 02/01/20 12:55 moxifloxacin [From Avelox] AdvReac Severe Tachycardia Unverified 02/01/20 12:55 Medications Home Medications Medication Instructions Recorded Confirmed Last Taken fluticasone propionate [Flovent 2 puff INHALATION DAILY 10/09/19 02/01/20 01/31/20 HFA] meloxicam 15 mg PO QPM 10/09/19 02/01/20 10/08/19 montelukast [Singulair] 10 mg PO QPM 10/09/19 02/01/20 01/31/20 mupirocin 2 % topical ointment 1 applic TOP BID #15 gm 11/18/19 02/01/20 01/31/20 levothyroxine [Synthroid] 75 mcg PO QAM 02/01/20 02/01/20 01/31/20 mometasone [Asmanex Twisthaler] 1 inh INHALATION DAILY 02/01/20 02/01/20 01/31/20 Active Medications Generic Name Dose Route Start Last Admin Trade Name Freq PRN Reason Stop Dose Admin Fluticasone Furoate 1 puffs 02/02/20 09:00 02/02/20 07:06 Fluticasone Furoate 100mcg 14 Puffs/Inhaler INH 03/03/20 08:59 1 puffs DAILY KOFI Administration Protocol Pantoprazole Sodium 40 mg/ 10 mls @ 5 mls/min 02/01/20 21:00 02/02/20 09:03 Syringe IV 03/02/20 20:59 5 mls/min BID KOFI Administration Potassium Chloride/Dextrose/Sod Cl 20 meq in 1,000 mls @ 100 mls/hr 02/01/20 20:30 02/02/20 16:08 D5nss + 20meq Kcl IV 03/02/20 20:29 100 mls/hr .Q10H KOFI Administration Levothyroxine Sodium 75 mcg 02/02/20 06:30 02/02/20 10:28 Levothyroxine Sodium 75 Mcg Tablet PO 03/03/20 06:29 75 mcg DAILYBB KOFI Administration Montelukast Sodium 10 mg 02/01/20 21:00 02/01/20 21:55 Montelukast Sodium 10 Mg Tablet PO 03/02/20 20:59 10 mg QPM KOFI Administration Mupirocin 1 appln 02/01/20 21:00 02/02/20 07:05 Mupirocin 2% Oint 22 Gm Tube EXT 03/02/20 20:59 1 appln BID KOFI Administration Sucralfate 1 gm 02/01/20 21:00 02/02/20 14:33 Sucralfate 1 Gm/10 Ml Udc PO 03/02/20 20:59 1 gm QID KOFI Administration NPO Date Last Intake of Fluids: 02/01/20 Time Last Intake of Fluids: 15:00 Date Last Intake of Solids: 02/01/20 Time Last Intake of Solids: 15:00 Past Medical History Medical History Allergic rhinitis Arthritis Asthma Coronary artery disease by way of coronary calcium scoring on CT NOT cardiac cath History of peptic ulcer Hypothyroidism PTSD (post-traumatic stress disorder) Exercise / Class Metabolic Activity II 4-5 Yardwork/Stairs/Walk up hill Past Family History Family History Father Cancer prostate Allergies Grandfather (Maternal) Cancer Coronary heart disease Grandfather (Paternal) Cancer Grandmother (Maternal) Myocardial infarction Family/Other Myocardial infarction cousin Other Heart disease No family history of adverse response to anesthesia No family history of bleeding disorder Past Surgical History Surgical History History of delivery x 2 History of foot surgery right foot History of sinus surgery Past Anesthesia History No Hx of Anesthesia Complications and No Family Hx of Anesthesia Complications History of PONV No Hx of PONV and No Hx of Motion Sickness Social History Smoking Status: Never smoker Do You Dip or Chew Tobacco: No Hx Alcohol Use: Yes Alcohol type: beer and wine alcohol intake frequency: holidays/special occasions only Hx Substance Use: Yes substance use type: marijuana Last Used Substance: Days (ago) Last Used Substance Other:: Medical Marijuana Physical Exam Vital Signs Last Vital Signs Temp 36.9 C 02/02/20 16:21 Pulse 77 02/02/20 16:21 Resp 20 02/02/20 16:21 BP 147/79 H 02/02/20 16:21 Pulse Ox 98 02/02/20 16:21 Testing Laboratory Results 02/02/20 06:24 02/02/20 06:24 Urine Color Yellow 02/01/20 13:40 Urine Appearance Clear (Clear) 02/01/20 13:40 Urine pH 5.5 (4.5-7.5) 02/01/20 13:40 Ur Specific Organ >= 1.030 (1.000-1.030) 02/01/20 13:40 Urine Protein Negative (Negative) 02/01/20 13:40 Urine Glucose (UA) Negative (Negative) 02/01/20 13:40 Urine Ketones 2+ (Negative) H 02/01/20 13:40 Urine Nitrite Negative (Negative) 02/01/20 13:40 Ur Leukocyte Esterase Negative (Negative) 02/01/20 13:40 Urine RBC >30 /hpf (0-4) H 02/01/20 13:40 Urine WBC 5-10 /hpf (0-5) H 02/01/20 13:40 Ur Epithelial Cells >30 /lpf (0-5) H 02/01/20 13:40
--- NOTE | 2020-02-02 16:59 | Operative Report ---
Post Operative Report Pre & Post Diagnosis Operation Date: 02/02/20 13:00 Pre-Op Diagnosis: nausea, vomiting, rule out gastric obstruction, abnormal CT scan Post-Op Diagnosis: gastric ulcer I identified the patient and participated in the time-out.: Yes Procedure Operation Date: 02/02/20 13:00 Actual Procedures p Esophagogastroduodenoscopy(Not Applicable) - Judah Jeter MD Surgeon Judah Jeter MD Investment Representative None Estimated Blood Loss 0 Findings See Below (Gastric ulcer) Specimens Gastric biopsy Description of Procedure EGD I attest to the content of the Intraoperative Record and any orders documented therein. Any exceptions are noted below.
--- NOTE | 2020-02-02 17:09 | GI REPORT ---
Patient Name: Maria De Jesus Cosme Procedure Date: 02/02/2020 4:07 PM Date of : 1965 Admit Type: Inpatient Age: 54 Gender: Female Attending MD: Judah Jeter MD Procedure: Upper GI endoscopy Providers: Judah Jeter MD Referring MD: Faustino Giraldo Md Indications: Abnormal CT of the GI tract, Suspected gastric outlet obstruction, Nausea with vomiting Medicines: Propofol per Anesthesia Complications: No immediate complications. Estimated Blood Loss: Estimated blood loss: none. Procedure: Pre-Anesthesia Assessment: - Prior to the procedure, a History and Physical was performed, and patient medications, allergies and sensitivities were reviewed. The patient's tolerance of previous anesthesia was reviewed. - The risks and benefits of the procedure and the sedation options and risks were discussed with the patient. All questions were answered and informed consent was obtained. - Patient identification and proposed procedure were verified prior to the procedure by the physician and the nurse. The procedure was verified in the procedure room. - Pre-procedure physical examination revealed no contraindications to sedation. After obtaining informed consent, the endoscope was passed under direct vision. Throughout the procedure, the patient's blood pressure, pulse, and oxygen saturations were monitored continuously.The upper GI endoscopy was accomplished without difficulty. The patient tolerated the procedure well. The Scope was introduced through the mouth, and advanced to the second part of duodenum. Findings: The examined esophagus was normal. One non-bleeding, deeply cratered gastric ulcer with no stigmata of bleeding was found in the gastric antrum. The lesion was 20 mm in largest dimension. Biopsies were taken with a cold forceps for Helicobacter pylori testing from the normal stomach. Verification of patient identification for the specimen was done by the physician and nurse using the patient's name and date. The duodenal bulb and second portion of the duodenum were normal. Impression: - Normal esophagus. - Non-bleeding, deeply cratered, clean base gastric ulcer with no stigmata of bleeding. - Normal duodenal bulb and second portion of the duodenum. Recommendation: - [facility] to [facility] care. - Advance diet as tolerated. - Avoid NSAIDs. - Use Protonix (pantoprazole) 40 mg PO BID for 3 months. - Use sucralfate tablets 1 gram PO BID for 4 weeks. - Repeat upper endoscopy in 2 - 3 months to check healing. - Await pathology results. - Recall GI if needed. Judah Jeter MD 02/02/2020 5:09:24 PM This report has been signed electronically. Note Initiated On: 02/02/2020 4:07 PM Number of Addenda: 0 I attest to the content of the Intraoperative Record and orders documented therein, exceptions below {[id number]}
[2020-02-02] MEDS ORDERED: PROPOFOL IV EMULSION 10 MG/ML 20 ML VIAL IV ONE (17:10)
--- NOTE | 2020-02-02 17:15 | Hospitalist Progress Note ---
Date of Service February 02, 2020 Assessment & Plan (1) Stomach ulcer: Hx of one ~10 years ago. - EGD on 02/[address] Jeter showed this again. - PPI IV BID for today - Carafate QID - Pain and nausea medication PRN (2) Epigastric abdominal pain: Abnormal stomach on CT a/p on admission. - As above (3) History of peptic ulcer: ~10 years ago, dx in [place]. - Hold NSAIDs from home. (4) Elevated bilirubin: Tbili noted to be high since 10/2019; normal on 10/09/2019. - Gallbladder ultrasound in 10/2019 and 02/01/2020 (this admission) both normal. No RUQ pain. - Outpatient follow-up (5) Allergic rhinitis: - Cont Singulair (6) Hypothyroidism: TSH earlier this year was mildly high. Repeat was normal. - Cont synthroid. (7) Asthma: no exacerbation at this time. cont usual inhalers, singulair, etc (8) PTSD (post-traumatic stress disorder): (9) Polycythemia: Due to severe dehydration / hemoconcentration. - Resolved by 02/01. Hgb down to 14.2. (10) Impetigo, unspecified: Sounds as if patient has impetigo of the left nostril. - Cont bactroban BID. (11) DVT prophylaxis: SCDs hold on chemical means due to EGD Admission and Anticipated Discharge Date Admission Date: February 01, 2020 Subjective Feels a lot better after starting her medications. No abdominal pain. Reports no fevers/chills, chest pain, shortness of breath, abdominal pain, nausea, or vomiting. Physical Exam Constitutional: WD/WN, vitals as above Eyes: EOM intact bilaterally; no conjunctival abnormality ENMT: external ear and nose normal, oropharynx normal Neck: trachea midline, no thyromegaly normal visual inspection Respiratory: normal respiratory effort, lungs clear to auscultation no respiratory distress Cardiovascular: RRR, no murmur, no edema Gastrointestinal (Abdomen): Inspection/Auscultation: abdomen normal to inspection; abdomen not distended Musculoskeletal: no cyanosis or clubbing, extremities motor strength 5/5 Skin: no rashes, warm and dry Neurologic: moves all extremities and awake Psychiatric: Orientation: alert, oriented to person and cooperative Results & Data Results & Data ([facility]) Vital Signs (Past 12 Hours) Vital Signs Temp Pulse Resp BP Pulse Ox 02/02/20 16:21 36.9 C 77 20 147/79 H 98 02/02/20 07:13 36.9 C 69 18 127/77 95 PG Care Time/CCT Total # of Minutes Spent Total Time Spent with Patient: Total time spent is greater than 50% in coordination of care (as documented) at patient's floor/unit and/or counseling patient: Coding Level of Care Code 48166 Subseq Hosp Care Lvl 3 Diagnoses Stomach ulcer K25.9 Epigastric abdominal pain R10.13 History of peptic ulcer Z87.11 Elevated bilirubin R17 Allergic rhinitis J30.89 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 Asthma J45.909 Asthma complication type: unspecified Asthma persistence: unspecified Asthma severity: unspecified severity PTSD (post-traumatic stress disorder) F43.10 Polycythemia D75.1 Impetigo, unspecified L01.00 DVT prophylaxis Z29.9 (1) Hypothyroidism 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
--- NOTE | 2020-02-02 17:19 | Anesthesiology Progress Note ---
Date of Service February 02, 2020 Anesthesia Post Procedure Vital Signs Vital Signs: Temp Pulse Pulse Resp BP BP Pulse Ox 02/02/20 17:10 84 11 L 133/74 99 02/02/20 17:04 36.4 C L 77 20 138/81 100 02/02/20 16:21 36.9 C 77 20 147/79 H 98 02/02/20 07:13 36.9 C 69 18 127/77 95 02/02/20 03:19 36.7 C 53 L 18 120/68 98 02/01/20 23:05 37.1 C 66 17 116/64 95 02/01/20 19:40 37.2 C 62 19 123/67 96 02/01/20 18:31 98 02/01/20 18:30 127/70 98 02/01/20 18:01 98 02/01/20 18:00 136/75 97 02/01/20 17:31 98 02/01/20 17:30 143/65 H 98 Transfer of Care Handoff Completed per policy Notes Mental Status: alert / awake / arousable and participated in evaluation Patient Amnestic to Procedure: Yes Nausea / Vomiting: adequately controlled Pain: adequately controlled Airway Patency, RR, SpO2: stable & adequate BP & HR: stable & adequate Hydration State: stable & adequate Anesthetic Complications: no major complications apparent and Pt Satisfied with anesthetic care
[2020-02-02] MEDS: MONTELUKAST SODIUM 10 MG TABLET PO SCH (19:55)
--- NOTE | 2020-02-02 22:46 | Electrocardiogram Report ---
Test Reason : Blood Pressure : / mmHG Vent. Rate : 083 BPM Atrial Rate : 083 BPM P-R Int : 162 ms QRS Dur : 096 ms QT Int : 396 ms P-R-T Axes : 075 094 055 degrees QTc Int : 465 ms Normal sinus rhythm with sinus arrhythmia Possible Left atrial enlargement Rightward axis Incomplete right bundle branch block Borderline ECG When compared with ECG of 09-OCT-2019 12:41, No significant change was found Confirmed by Joe Gil ([id number]) on 02/02/2020 10:46:48 PM Referred By: REFERRED SELF Confirmed By:Joe Gil
[2020-02-03] MEDS: LEVOTHYROXINE SODIUM 75 MCG TABLET PO SCH (05:42)
[2020-02-03 07:44] LABS: Hematocrit (blood only) 43.7 % (37-47); Hemoglobin 14.3 g/dL (12.0-16.0); Mean Corpuscular Hemoglobin 28.1 pg (25-34); Mean Corpuscular Hgb Conc 32.7 g/dL (32-36); Mean Platelet Volume 10.3 fL (7.4-10.4); Platelet Count 231 K/uL (130-400); RDW Coefficient of Variation 13.7 % (11.5-14.5); RDW Standard Deviation 43.3 fL (36.4-46.3); Red Blood Count 5.08 M/uL (4.2-5.4); White Blood Count 5.32 K/uL (4.8-10.8)
[2020-02-03 08:05] LABS: Albumin Level 3.3 gm/dl (3.4-5.0); BUN Creatinine Ratio 10.6 (10-20); Calcium 8.8 mg/dl (8.5-10.1); Creatinine Clr Calc Pharmacy 77.5 ml/min; Est GFR (African American) 109.3; Est GFR (Non-African American) 94.3; Magnesium 2.1 mg/dl (1.8-2.4); Potassium 3.6 mmol/L (3.5-5.1)
[2020-02-03] MEDS: MUPIROCIN 2% OINT 22 GM TUBE EXT SCH (08:12)
[2020-02-03] MEDS: FLUTICASONE FUROATE 100MCG 14 PUFFS/INHALER INH SCH (08:12)
[2020-02-03] MEDS: PANTOprazole 40 MG in SYRINGE 0 ML IV SCH (08:12)
[2020-02-03] MEDS: SUCRALFATE 1 GM/10 ML UDC PO SCH (08:12)
[2020-02-03 08:16] LABS: Albumin Globulin Ratio 0.9 (0.9-2); Bilirubin,Total 1.2 mg/dl (0.2-1); Globulin 3.5 gm/dl (2.5-4.0); Total Protein 6.8 gm/dl (6.4-8.2)
[2020-02-03 08:44] VITALS: BP 134/83; PULSE 74; TEMP 98.8; O2SAT 95
--- NOTE | 2020-02-03 09:40 | Gastroenterology Progress Note ---
Date of Service February 03, 2020 Assessment & Plan (1) History of peptic ulcer: 54 year old female admitted w/ abd pain, non-bleeding, deeply cratered, clean base gastric ulcer with no stigmata of bleeding. - No GI contraindication to sign off - Advance diet as tolerated - Avoid NSAIDs. - Use Protonix (pantoprazole) 40 mg PO BID for 3 months. - Use sucralfate tablets 1 gram PO BID for 4 weeks. - Repeat upper endoscopy in 2 - 3 months to check healing. Admission and Anticipated Discharge Date Admission Date: February 01, 2020 Supervising Physician Co-Signing Physician Notes I have seen and examined the patient with DEVIKA Mancia whose note reflects our findings and plan. Ulcer. H/H stable. Conitnue with PPI. Repeat EGD in 3 months to verify healing. abd is benign. please call with questions. Subjective S/P EGD w/ evidence of ulcer Feeling well No abd pain No nausea/vomiting Wants to go home. No black or bloody stools. Review of Systems Constitutional: no fever and no chills Respiratory: no cough and no dyspnea Cardiovascular: no chest pain and no dyspnea Gastrointestinal: + abdominal pain; no blood in stools and no melena Physical Exam Constitutional: + acute distress; + not well developed and + not well nourished Neck: trachea midline Respiratory: normal respiratory effort; no respiratory distress Cardiovascular: Rate/Rhythm: regular rate and regular rhythm Gastrointestinal (Abdomen): Inspection/Auscultation: abdomen normal to inspection and normal bowel sounds Percussion/Palpation: abdomen soft; abdomen nontender, no guarding and abdomen not rigid Skin: no rashes, warm and dry Results & Data ([facility]) Vital Signs (Past 12 Hours) Vital Signs Temp Pulse Resp BP Pulse Ox 02/03/20 09:20 37.1 C 74 20 134/83 95 02/03/20 08:43 37.1 C 74 20 134/83 95 02/02/20 23:16 37 C 65 18 131/73 98 Laboratory Results 02/03/20 02/03/20 02/02/20 Range/Units 07:02 07:02 11:45 WBC 5.32 (4.8-10.8) K/uL RBC 5.08 (4.2-5.4) M/uL Hgb 14.3 (12.0-16.0) g/dL Hct 43.7 (37-47) % MCV 86.0 (80-100) fL MCH 28.1 (25-34) pg MCHC 32.7 (32-36) g/dL RDW Std Deviation 43.3 (36.4-46.3) fL RDW Coeff of Jeremy 13.7 (11.5-14.5) % Plt Count 231 (130-400) K/uL MPV 10.3 (7.4-10.4) fL Sodium 140 (136-145) mmol/L Potassium 3.6 (3.5-5.1) mmol/L Chloride 105 (98-107) mmol/L Carbon Dioxide 30 (21-32) mmol/L Anion Gap 5.0 (3-11) BUN 8 D (7-18) mg/dl Creatinine 0.72 (0.6-1.2) mg/dl Est Cr Clr Drug Dosing 77.5 ml/min Est GFR ( Amer) 109.3 Est GFR (Non-Af Amer) 94.3 BUN/Creatinine Ratio 10.6 (10-20) Glucose 83 (70-99) mg/dl Calcium 8.8 (8.5-10.1) mg/dl Magnesium 2.1 (1.8-2.4) mg/dl Total Bilirubin 1.2 H (0.2-1) mg/dl AST 10 L (15-37) U/L ALT 15 (12-78) U/L Alkaline Phosphatase 49 (45-117) U/L Total Protein 6.8 (6.4-8.2) gm/dl Albumin 3.3 L (3.4-5.0) gm/dl Globulin 3.5 (2.5-4.0) gm/dl Albumin/Globulin Ratio 0.9 (0.9-2) COVID-19 Eval Order SARS-CoV-2, RNA, NAAT NEGATIVE (NEGATIVE) 02/02/20 Range/Units 11:45 WBC (4.8-10.8) K/uL RBC (4.2-5.4) M/uL Hgb (12.0-16.0) g/dL Hct (37-47) % MCV (80-100) fL MCH (25-34) pg MCHC (32-36) g/dL RDW Std Deviation (36.4-46.3) fL RDW Coeff of Jeremy (11.5-14.5) % Plt Count (130-400) K/uL MPV (7.4-10.4) fL Sodium (136-145) mmol/L Potassium (3.5-5.1) mmol/L Chloride (98-107) mmol/L Carbon Dioxide (21-32) mmol/L Anion Gap (3-11) BUN (7-18) mg/dl Creatinine (0.6-1.2) mg/dl Est Cr Clr Drug Dosing ml/min Est GFR ( Amer) Est GFR (Non-Af Amer) BUN/Creatinine Ratio (10-20) Glucose (70-99) mg/dl Calcium (8.5-10.1) mg/dl Magnesium (1.8-2.4) mg/dl Total Bilirubin (0.2-1) mg/dl AST (15-37) U/L ALT (12-78) U/L Alkaline Phosphatase (45-117) U/L Total Protein (6.4-8.2) gm/dl Albumin (3.4-5.0) gm/dl Globulin (2.5-4.0) gm/dl Albumin/Globulin Ratio (0.9-2) COVID-19 Eval [facility] SARS-CoV-2, RNA, NAAT (NEGATIVE)
--- NOTE | 2020-02-03 15:45 | Discharge Summary ---
Date of Service February 03, 2020 Admission HPI Per Admitting Provider 54yo female with h/o hypothyroidism, asthma, and allergic rhinitis presents with 3 days of vomiting. Vomiting is typically stomach contents or acid. Nonbilious and nonbloody. Unable to eat since Monday of this week. No fevers. No rigors/chills. She has had abdominal pain and cramping along with pressure over the RUQ. The pain has been off/on for several weeks but worse since Monday. No diarrhea. She has had nocturnal vomiting as well. Some headache (5 minutes or so) after having emesis. Sporadically over the last few months she has woken up in the am, gotten out of bed, and vomited. Has lost 5 pounds in the last 4 days. No weight loss prior to that. She does have intermittent heartburn symptoms. Had EGD about 10 years ago in [place]. That EGD was done for dysphagia. She was dx with PUD at that time. She doesn't recall if she had H. pylori. Takes occasional tums for acid. She uses meloxicam very seldomly. Last week, however, she did take meloxicam for 3-4 days. She also took advil OTC last week for 4-5 days. No etoh. No tobacco. Uses medical THC for chronic arthritis. She had a similar multi-day episode of vomiting and dehydration in October 2019 as well. Seen in ER then for that episode. Principal Diagnosis Gastric ulcer Discharge Exam Constitutional WD/WN, vitals as above Eyes EOM intact bilaterally; no conjunctival abnormality ENMT external ear and nose normal, oropharynx normal Neck trachea midline, no thyromegaly normal visual inspection Respiratory normal respiratory effort, lungs clear to auscultation no respiratory distress Cardiovascular RRR, no murmur, no edema Gastrointestinal (Abdomen) Inspection/Auscultation: abdomen normal to inspection; abdomen not distended Musculoskeletal no cyanosis or clubbing, extremities motor strength 5/5 Skin no rashes, warm and dry Neurologic moves all extremities and awake Psychiatric Orientation: alert, oriented to person and cooperative Discharge Data Allergies Allergy/AdvReac Type Severity Reaction Status Date / Time codeine Allergy Unknown Rash Verified 02/01/20 12:55 iodine Allergy Unknown Unknown Unverified 02/01/20 12:55 Penicillins Allergy Unknown Rash Unverified 02/01/20 12:55 Sulfa (Sulfonamide Allergy Unknown Rash Unverified 02/01/20 12:55 Antibiotics) sulfamethoxazole Allergy Unknown Rash Unverified 02/01/20 12:55 [From Bactrim] trimethoprim [From Bactrim] Allergy Unknown Rash Unverified 02/01/20 12:55 animal dander Allergy Verified 02/01/20 12:55 Fish Containing Products AdvReac Severe Anaphylaxis Unverified 02/01/20 12:55 moxifloxacin [From Avelox] AdvReac Severe Tachycardia Unverified 02/01/20 12:55 Consultations 02/01/20 16:34 ED Decision to Admit Stat 02/01/20 19:42 Consult Gastroenterology Routine Procedures Performed Operation Date: 02/02/20 13:00 Actual Procedures p Esophagogastroduodenoscopy(Not Applicable) - Judah Jeter MD Ordered Studies 02/01/20 11:27 US gallbladder Stat 02/01/20 15:05 CT abd pelvis wo con Stat 02/01/20 17:35 CT head/brain wo con Routine Hospital Course (1) Stomach ulcer: Hx of one ~10 years ago. - EGD on 02/[address] Jeter showed this again. - PPI PO BID x 3 months - Carafate QID x 1 month - No NSAIDs - Hold ASA 81 mg daily for about 1 month until GI clears return to use. - Follow up with Dr. Jeter in the clinic with plan for repeat EGD in 3 months to ensure it is healing. (2) Epigastric abdominal pain: Abnormal stomach on CT a/p on admission. - As above (3) History of peptic ulcer: ~10 years ago, dx in [place]. - Hold NSAIDs from home. (4) Coronary artery disease: Has been diagnosed with high coronary artery score with coronary CT. - Hold home ASA until cleared by GI (about 1 month potentially) (5) Elevated bilirubin: Tbili noted to be high since 10/2019; normal on 10/09/2019. - Gallbladder ultrasound in 10/2019 and 02/01/2020 (this admission) both normal. No RUQ pain. - Outpatient follow-up (6) Allergic rhinitis: - Cont Singulair (7) Hypothyroidism: TSH earlier this year was mildly high. Repeat was normal. - Cont synthroid. (8) Asthma: No exacerbation at this time. - Cont usual inhalers, singulair, etc (9) PTSD (post-traumatic stress disorder): (10) Polycythemia: Due to severe dehydration / hemoconcentration. - Resolved by 02/01. Hgb down to 14.2. (11) Impetigo, unspecified: Sounds as if patient has impetigo of the left nostril. - Cont bactroban BID. (12) DVT prophylaxis: SCDs hold on chemical means due to EGD Total Time Total Time Spent Total Time Spent (In Minutes): 35 Discharge Plan Discharge Items Patient Disposition: Home - Self-Care Reason For Visit: DEHYDRATION,EMESIS X3DAYS,ABNORMAL CT ABDOMEN Discharge Diagnosis: Gastric ulcer Condition on Discharge: Fair Activity: Resume your previous activity Non-emergency contact: Primary Care Provider and Color Control Supervisor Call non-emergency contact if: your symptoms worsen Follow-up/Referrals: Judah Jeter MD [Hospitalist] - (Please see Dr. Jeter in 2-4 weeks.) PCP,NO [Primary Care Provider] - Diet: Regular Addtl Attending Provider Instructions: You were admitted to the hospital for stomach pain and vomiting. We believe this was caused by an ulcer in your stomach. Dr. Jeter did an EGD and luckily the ulcer was not/is not bleeding. This is very good! Your labs were stable as well. We would like you to take an acid hilda (pantoprazole) two times per day for 3 months and a medication called Carafate (like a prescription strength Pepto-bismol) for 4 weeks to help heal your stomach. Please follow up with Dr. Jeter in the clinic in 2-4 weeks with a plan to repeat the EGD in 2-3 months to ensure it has healed. Please avoid all NSAID medications. These include meloxicam, ibuprofen, Motrin, naproxen, Aleve, etc. It is safe to take acetaminophen (Tylenol) for aches and pains within the bottle recommendations. Please call Dr. Jeter's office if you have any further stomach pain, vomiting, bloody vomit, dark/tarry stools, or other concerning symptoms, or come back to the hospital or call . Pending Studies at Discharge: No Stand-Alone Forms: My [facility], Smoking Cessation Medications and DC Order Prescriptions: New pantoprazole 40 mg tablet,delayed release (DR/EC) 40 mg PO BID Qty: 60 RF: 2 sucralfate [Carafate] 100 mg/mL suspension 1 g PO Q6H 28 Days Qty: 1120 RF: 0 Continued mupirocin 2 % ointment 1 applic TOP BID Qty: 15 RF: 2 Flovent HFA 44 mcg/actuation Hfa Aerosol Inhaler 2 puff INHALATION DAILY RF: 0 montelukast [Singulair] 10 mg Tablet 10 mg PO QPM RF: 0 levothyroxine [Synthroid] 75 mcg Tablet 75 mcg PO QAM RF: 0 Asmanex Twisthaler 220 mcg/ actuation (30) aerosol powdr breath activated 1 inh INHALATION DAILY RF: 0 Discontinued meloxicam 15 mg Tablet 15 mg PO QPM RF: 0 Discharge Orders: Discharge Order (Routine); Ordered 02/03/20 Ordered By: Faustino Giraldo Admission Data Admit Date/Time: 02/01/20 17:35 Attending Provider: Faustino Giraldo Admit Provider: James Silverman Primary Care Provider: PCP,NO Other Providers: Faustino Giraldo ; James Silverman ; Judah Jeter Other Interventions: Discharge Summary Assessment (RN) Last Done: 02/03/20 09:20 Coding Level of Care Code 26670 OBS Care - Discharge Diagnoses Stomach ulcer K25.9 Epigastric abdominal pain R10.13 History of peptic ulcer Z87.11 Coronary artery disease I25.10 Elevated bilirubin R17 Allergic rhinitis J30.89 Allergic rhinitis trigger: other Allergic rhinitis seasonality: unspecified Hypothyroidism E03.8; E06.3 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
== END 2020-02-03 10:40 | disposition home or self-care (01) ==
LOC: 2N 11:09 → ED 11:09 → SUATTDRO 17:35 → 2N 18:57